=== PATIENT | female | born 1975 | race Asian ===

== ENCOUNTER 2018-10-18 07:00 | Inpatient (IN) | payer SELFPAY ==
[~2018-10-18] VITALS: Ht 159 cm; Wt 67.1 kg
[2018-10-18] MEDS ORDERED: LR 1,000 ML IV SCH (07:31)
[2018-10-18] MEDS ORDERED: CEFAZOLIN 2 GM IVPB PREMIX 50 ML IV ONE (07:45)
[2018-10-18 08:00] LABS: BASOPHILS # (AUTO) 0.1 K/uL (0.0-0.2); BASOPHILS % (AUTO) 1.2 % (0.0-2.0); EOSINOPHILS # (AUTO) 0.1 K/uL (0.0-0.4); EOSINOPHILS % (AUTO) 1.7 % (0.0-4.0); HEMATOCRIT 32.2 % (36-48); HEMOGLOBIN 10.2 g/dL (12.0-16.0); LYMPHOCYTES % (AUTO) 25.3 % (20.5-51.5); MEAN CORPUSCULAR HEMOGLOBIN 25 pg (27-31); MEAN CORPUSCULAR HGB CONC 32 % (32-36); MEAN CORPUSCULAR VOLUME 80 fL (79.0-98.0); MONOCYTES # (AUTO) 0.5 K/uL (0.0-1.0); MONOCYTES % (AUTO) 6.5 % (1.7-9.3); NEUTROPHILS # (AUTO) 5.3 K/uL (1.8-7.7); NEUTROPHILS % (AUTO) 65.3 % (40.0-70.0); PLATELET COUNT (AUTO) 180 K/uL (130-430); RED BLOOD CELL COUNT(AUTO) 4.03 MIL/uL (4.2-6.2); RED CELL DISTRIBUTION WIDTH 15.9 % (9.0-15.0)
[2018-10-18] MEDS ORDERED: LR 1,000 ML IV.SOLN IV ONE (08:00)
[2018-10-18] MEDS ORDERED: KETOROLAC TROMETHAMINE 30 MG VIAL IVP ONE (08:00)
[2018-10-18] MEDS ORDERED: MIDAZOLAM HCL 5 MG/5 ML VIAL IVP ONE (08:00)
[2018-10-18] MEDS ORDERED: MORPHINE SULFATE 10MG/10ML PF AMP EP ONE (08:00)
[2018-10-18] MEDS ORDERED: OXYTOCIN 10 UNIT/ML VIAL IV ONE (08:00)
[2018-10-18] MEDS ORDERED: NS IRRIG SOLN 1000 ML IR ONE (08:00)
[2018-10-18] MEDS ORDERED: NALBUPHINE HCL 10 MG/ML AMP IVP PRN (08:30)
[2018-10-18] MEDS ORDERED: MORPHINE SULFATE 10MG/10ML PF AMP SP SCH (08:30)
[2018-10-18] MEDS ORDERED: DIPHENHYDRAMINE INJ 50 MG/ML VIAL IVP PRN (08:30)
[2018-10-18] MEDS ORDERED: ONDANSETRON HCL 4 MG/2 ML VIAL IVP PRN (08:30)
[2018-10-18] MEDS ORDERED: NALOXONE HCL 0.4 MG/ML AMP (NARCAN) IVP PRN ×2 (08:30)
[2018-10-18] MEDS ORDERED: fentaNYL CITRATE/PF 100 MCG/2 ML AMP IVP PRN ×2 (08:30)
[2018-10-18] MEDS ORDERED: KETOROLAC TROMETHAMINE 30 MG VIAL IVP PRN (08:30)
[2018-10-18] MEDS ORDERED: OXYTOCIN/0.9 % SODIUM CHLORIDE 1,000 ML IV ONE (10:21)
[2018-10-18] MEDS ORDERED: BISACODYL 10 MG/SUPPOSITORY RC PRN (10:30)
[2018-10-18] MEDS ORDERED: ANUSOL 1 EA SUPP.RECT (PREPARATION H) RC PRN (10:30)
[2018-10-18] MEDS ORDERED: LANOLIN 7 GM OINT. TP PRN (10:30)
[2018-10-18] MEDS ORDERED: SENNOSIDES/DOCUSATE SODIUM 1 TAB TABLET(SENOKOT-S) PO PRN (10:30)
[2018-10-18] MEDS: CEFAZOLIN 1 GM IVPB PREMIX 50 ML IV SCH ×3 (12:07→23:59)
[2018-10-18 12:49] VITALS: BP_SYST 109
[2018-10-18] MEDS: LR 1,000 ML IV SCH (20:00)
[2018-10-19] MEDS ORDERED: KETOROLAC TROMETHAMINE 30 MG VIAL IVP SCH
[2018-10-19] MEDS ORDERED: HYDROcodone/ACETAMIN 5-325 MG TAB (NORCO/ VICODIN) PO PRN
[2018-10-19] MEDS ORDERED: OXYCODONE/ACETAMINOPHEN 5-325 TABLET PO PRN
[2018-10-19] MEDS: LR 1,000 ML IV SCH (04:00)
[2018-10-19] MEDS ORDERED: DOCUSATE SODIUM 100 MG CAPSULE PO PRN (06:00)
[2018-10-19] MEDS ORDERED: KETOROLAC TROMETHAMINE 30 MG VIAL ONE (06:03)
[2018-10-19 07:14] LABS: BASOPHILS % (AUTO) 0.2 % (0.0-2.0); EOSINOPHILS % (AUTO) 0.4 % (0.0-4.0); HEMATOCRIT 25.3 % (36-48); HEMOGLOBIN 7.9 g/dL (12.0-16.0); LYMPHOCYTES # (AUTO) 1.1 K/uL (1.0-5.5); LYMPHOCYTES % (AUTO) 9.1 % (20.5-51.5); MEAN CORPUSCULAR HEMOGLOBIN 25 pg (27-31); MEAN CORPUSCULAR HGB CONC 31 % (32-36); MEAN CORPUSCULAR VOLUME 80 fL (79.0-98.0); MONOCYTES # (AUTO) 0.7 K/uL (0.0-1.0); MONOCYTES % (AUTO) 6.3 % (1.7-9.3); NEUTROPHILS # (AUTO) 10.1 K/uL (1.8-7.7); PLATELET COUNT (AUTO) 181 K/uL (130-430); RED BLOOD CELL COUNT(AUTO) 3.16 MIL/uL (4.2-6.2); WHITE BLOOD COUNT (AUTO) 11.9 K/uL (4.8-10.8)
[2018-10-19] MEDS: SIMETHICONE 80 MG TAB.CHEW PO PRN ×2 (12:37→18:27)
[2018-10-19] MEDS: OXYCODONE/ACETAMINOPHEN 5-325 TABLET PO PRN ×2 (12:37→18:27)
[2018-10-19] MEDS: IBUPROFEN 600 MG TABLET PO SCH ×2 (12:37→18:27)
[2018-10-20] MEDS ORDERED: IBUPROFEN 600 MG TABLET PO SCH
[2018-10-20] MEDS: IBUPROFEN 600 MG TABLET PO SCH ×3 (00:42→12:16)
[2018-10-20] MEDS: SIMETHICONE 80 MG TAB.CHEW PO PRN (12:32)
== END 2018-10-20 17:45 | disposition home or self-care (01) | DRG 788 ==
LOC: SPU 07:00 → EDSTATUS 07:09 → SPU 10:15
PROVIDERS: ADMIT Obstetrics & Gynecology; ATTEND Obstetrics & Gynecology
PROC: 10D00Z1 Extraction of Products of Conception, Low, Open Approach (ICD-10-PCS; principal; 2018-10-18 07:00)
DX: O34.211 Maternal care for low transverse scar from previous cesarean delivery (principal); O24.429 Gestational diabetes mellitus in childbirth, unspecified control; Z37.0 Single live birth; Z3A.37 37 weeks gestation of pregnancy
CPT/HCPCS: 36415; 82947-TC; 85025; 86886; 86900; 86901; 94760; J0690; J1885; J2250; J2274; J2590; J7120